=== PATIENT | male | born 1980 | race Caucasian/White ===

== ENCOUNTER 2017-06-22 08:47 | Day surgery (SDC) | payer OTHER ==
[2017-06-22] MEDS ORDERED: ceFAZolin 2 GM/50 ML 50 ML IV ONE (09:34)
[2017-06-22] MEDS ORDERED: LACTATED RINGERS 1,000 ML IV ONE (09:35)
[2017-06-22] MEDS ORDERED: DEXAMETHASONE 4 MG/ML VIAL IVP ONE (12:30)
[2017-06-22] MEDS ORDERED: LIDOCAINE-PF 2% 10 ML AMP SUBQ ONE (12:30)
[2017-06-22] MEDS ORDERED: ONDANSETRON 4 MG/2 ML VIAL IVP ONE (12:30)
[2017-06-22] MEDS ORDERED: ePHEDrine 50 MG/ML VIAL IVP ONE (12:30)
[2017-06-22] MEDS ORDERED: fentaNYL 100 MCG/2 ML VIAL IVP ONE (12:30)
[2017-06-22] MEDS ORDERED: PROPOFOL 200 MG/20 ML VIAL IVP ONE (12:30)
[2017-06-22] MEDS ORDERED: MIDAZOLAM 2 MG/2 ML VIAL IVP ONE (12:30)
[2017-06-22] MEDS ORDERED: BUPIVACAINE 0.25% PF 30 ML VIAL SUBQ ONE (12:48)
[2017-06-22] MEDS: HYDROmorphone 1 MG/ML SYRINGE ONE ×5 (14:38→15:03)
[2017-06-22] MEDS ORDERED: HYDROmorphone 1 MG/ML SYRINGE ONE (15:06)
[2017-06-22] MEDS ORDERED: oxyCODONE 5 MG TABLET ONE (15:38)
[2017-06-22 16:16] VITALS: BP 138/85
--- NOTE | 2017-06-23 07:30 | OPERATIVE REPORT ---
DATE OF SURGERY: 06/22/2017 00:00:00 PREOPERATIVE DIAGNOSIS: Right thumb metacarpophalangeal joint arthritis. POSTOPERATIVE DIAGNOSIS: Right thumb metacarpophalangeal joint arthritis. NAME OF PROCEDURE: Right thumb metacarpophalangeal joint arthrodesis. SURGEON: Adebayo Butterfield MD ANESTHESIA: General. POSTOPERATIVE PLAN: Same-day surgery discharge. Splint in place until followup. Transition the cast f rom weeks 2-6. Remove cast with x-rays at 6 weeks. Gradual increase of activity if there is evidence of fusion. INDICATION FOR SURGERY: This is a 37-year-old male who reported an injury to his thumb 15 years prior , with persistent increasing pain since that time, as well as stiffness. On presentation, he had diff iculty with any gripping activities, shaking hands, playing with his children, and an inability to sl eep at times secondary to his thumb pain. 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 His range of motion was at a 25-degree arc from 10 degrees to 35 degrees of flexion, which was very painful at endpoint and mildly painful at midpoint. Treatmen t options were given to the patient to include steroid injections, watchful waiting, pain medications , and arthrodesis. Because of his desire for a stable joint and manual labor, he opted for arthrodesi s. The risks, benefits, and alternatives were discussed. The risks include pain, bleeding, infection, nonunion, malunion, and damage to nearby structures to include tendons, ligaments, nerves, arteries and veins, the anesthetic risks, and . He signed a written consent form. EXAMINATION UNDER ANESTHESIA: Range of motion as measured by goniometer was 10 degrees of flexion to 40 degrees of flexion. SURGICAL FINDINGS: Severe degenerative changes to the thumb MP joint, with cartilage loss predominant ly on the dorsal half of the joint with free bodies loose within the joint, as well as osteophyte for mation throughout. Some cartilage was preserved on the more volar portions of the joint. IMPLANTS: 1. 36 mm, 3.0 cannulated partially threaded screw by [employer]. 2. Threaded washer designed for the screw by [employer]. ANTIBIOTICS: Weight-based Ancef. ESTIMATED BLOOD LOSS: 5 mL. URINE OUTPUT: Not recorded. INTRAVENOUS FLUIDS: 1500. TOURNIQUET TIME: 88 minutes at 200 mmHg. SPECIMENS: None. COMPLICATIONS: None. DISPOSITION: Stable to PACU. DEEP VEIN THROMBOSIS PROPHYLAXIS: Early frequent ambulation. DESCRIPTION OF PROCEDURE: The patient was met in the preoperative hold area on the day of the procedu re. The operative extremity was signed, and consent was verified. He desired to proceed. He was broug ht to the operating room and surrendered to anesthesia. Once general anesthesia had been obtained, he was placed in the supine position. All bony prominences were well padded. Examination under anesthes ia was performed. He was then prepped and draped in the standard sterile fashion. A surgical time-out was held where we confirmed the patient's identity, procedure, allergies, antibio tics, and images. All were in agreement. We proceeded. A 3 cm incision was made dorsally over the MP joint centered over the head of the metacarpal. This was done midline. Hemostasis was obtained. An Es march was used to exsanguinate the limb, and the tourniquet was elevated prior to incision. Sharp dis section was carried down overlying the tendons, and the interval between the EPB and EPL was explored . A full-thickness capsular incision was made within this interval, and the collaterals were taken do wn. We then removed the free bodies from inside the joint and from the volar aspect of the joint. I f ully exposed the metacarpal head and with curettes, rongeurs, and a knife, I removed all remaining ca rtilage. I then exposed the proximal aspect of the proximal phalanx and did the same thing. A 1.1 K-w khadra was then used to perforate the joint to allow for bleeding bone. The joint was then reduced and p laced into approximately 15 degrees of flexion, with neutral varus/valgus and neutral pronation/supin ation. A K-wire was then placed from the metacarpal head intramedullary into the proximal phalanx. Th is was done by image guiding. We found that K-wire to be in good position, co-linear with the medulla ry canal, and with enough metacarpal bone for the implant head. Satisfied with this, we then distract ed the joint and irrigated copiously to get rid of any remaining cartilage or debris. A second K-wire was placed more radially within the joint to secure rotation. We then hand-drilled by hand and then countersunk by hand. A threaded washer was placed, ensuring it to be fully countersunk. We measured t he distance from the threaded washer to the subchondral bone of the distal phalanx as 40 and selected a 36 mm screw. The screw was placed, and excellent compression was seen across the arthrodesis site. We then irrigated the incision again and closed in a layered fashion. Imaging was performed prior to closure, confirming position of the joint. We again measured the angle of flexion, and it was found to be 17 degrees. The fixation was solid. Closure was performed with 2-0 Vicryl in the capsule, 2-0 V icryl in the peritenon to pull the extensor tendons back together, and then 2-0 Vicryl in the dermal tissues. 4-0 nylon was used in the skin. 10 mL of 0.25% Marcaine were placed into and about the incis ion. A sterile dressing was applied, and a thumb spica splint was placed. The patient was then awaken ed and transferred to the recovery room without issue. JOB #: [id number] EXT JOB #:[id number]
== END 2017-06-22 08:48 | disposition home or self-care (01) ==
LOC: SDS 08:47
PROVIDERS: ATTEND Orthopaedic Surgery
PROC: 0RGU04Z Fusion of Right Metacarpophalangeal Joint with Internal Fixation Device, Open Approach (ICD-10-PCS; principal; 2017-06-22 10:15)
DX: M18.11 Unilateral primary osteoarthritis of first carpometacarpal joint, right hand (principal); I10 Essential (primary) hypertension; G47.30 Sleep apnea, unspecified
CPT/HCPCS: 26841; 87640; A9270; J0690; J1170; J7120